=== PATIENT | male | born 1950 | race African-American/Black ===

== ENCOUNTER 2016-11-05 01:41 | Inpatient (IN) | payer SELFPAY ==
[~2016-11-05] VITALS: Ht 165.1 cm; Wt 49.9 kg
[2016-11-05] MEDS ORDERED: SODIUM CHLORIDE 0.9% 1,000 ML IV ONE (03:18)
[2016-11-05 03:59] LABS: BASOPHILS % 0.6 % (0.0-2.0); EOSINOPHILS % 2.7 % (0.0-5.0); HEMOGLOBIN. 12.7 g/dL (14.0-18.0); LYMPHOCYTES % 41.2 % (20.0-50.0); MEAN CORPUSCULAR HEMOGLOBIN 25.7 pg (28.0-32.0); MEAN CORPUSCULAR VOLUME 79.2 fL (80.0-94.0); MEAN PLATELET VOLUME 8.7 fl (7.4-10.4); MONOCYTES % 7.6 % (2.0-8.0); NEUTROPHILS % 47.9 % (40.0-76.0); PLATELET 180 x1000/uL (130-400); RED BLOOD CELL COUNT 4.92 mill/uL (4.7-6.1); RED CELL DISTRIBUTION WIDTH 20.9 % (11.6-14.6)
[2016-11-05] MEDS ORDERED: HYDRALAZINE 20MG/ML VIAL IV ONE (04:00)
[2016-11-05 04:01] LABS: PROTHROMBIN TIME 10.6 sec (9.4-11.6)
[2016-11-05 04:10] LABS: CARBON DIOXIDE 26 mEq/L (21-32); CHLORIDE 106 mEq/L (98-107); ETHANOL BLOOD < 10 mg/dL; TROPONIN I 0.03 ng/mL (0.00-0.04)
[2016-11-05] MEDS ORDERED: HYDRALAZINE 20MG/ML VIAL IV NR (05:00)
[2016-11-05 05:27] LABS: CLARITY URINE CLEAR (CLEAR); COLOR URINE YELLOW (YELLOW); GLUCOSE URINE NEGATIVE (NEGATIVE); KETONES URINE NEGATIVE (NEGATIVE); LEUKOCYTE ESTERASE URINE NEGATIVE (NEGATIVE); NITRITE URINE NEGATIVE (NEGATIVE); OCCULT BLOOD URINE NEGATIVE (NEGATIVE); PROTEIN URINE NEGATIVE (NEGATIVE); SPECIFIC GRAVITY URINE 1.014 (1.005-1.030)
[2016-11-05 05:41] LABS: *AMPHETAMINES SCREEN URINE NEGATIVE (NEGATIVE); *BARBITURATES SCREEN URINE NEGATIVE (NEGATIVE); *BENZODIAZEPINES SCREEN URINE NEGATIVE (NEGATIVE); *COCAINE SCREEN URINE NEGATIVE (NEGATIVE); CANNABINOID URINE SCREEN NEGATIVE (NEGATIVE); METHADONE URINE SCREEN NEGATIVE (NEGATIVE); OPIATES URINE SCREEN NEGATIVE (NEGATIVE); PHENCYCLIDINE URINE SCREEN NEGATIVE (NEGATIVE)
[2016-11-05] MEDS ORDERED: DIPHENHYDRAMINE 50MG/ML VIAL IV PRN (05:45)
[2016-11-05] MEDS ORDERED: CLONIDINE 0.1MG TABLET PO PRN (05:45)
[2016-11-05] MEDS ORDERED: ACETAMINOPHEN 325MG TABLET PO PRN (05:45)
[2016-11-05] MEDS ORDERED: MAGNESIUM/ALUMINUM HYDROXIDE/SIMETHICONE 30ML UDC PO PRN (05:45)
[2016-11-05] MEDS ORDERED: ONDANSETRON HCL 4MG/2ML VIAL IV PRN (05:45)
[2016-11-05] MEDS: SODIUM CHLORIDE 0.9% INJ 3ML FLUSH IVF SCH ×3 (06:00→21:28)
[2016-11-05 11:00] VITALS: BP 208/85
[2016-11-05] MEDS: AMLODIPINE 10MG TABLET PO SCH (11:40)
[2016-11-05] MEDS: DOCUSATE SODIUM 100MG CAPSULE PO SCH ×2 (11:41→17:03)
[2016-11-05] MEDS: LOSARTAN POTASSIUM 100 MG TABLET PO SCH (11:41)
[2016-11-05 11:55] VITALS: BP 208/85
[2016-11-05 13:20] VITALS: BP 125/64
[2016-11-05] MEDS ORDERED: MAGNESIUM HYDROXIDE 400MG/5ML 30ML UDC PO PRN (13:45)
[2016-11-05 16:00] VITALS: BP 137/63
[2016-11-05 20:00] VITALS: BP 133/55
[2016-11-06] VITALS: BP 144/62
[2016-11-06 04:00] VITALS: BP 137/67
[2016-11-06] MEDS: SODIUM CHLORIDE 0.9% INJ 3ML FLUSH IVF SCH ×2 (07:00→15:22)
[2016-11-06 08:00] VITALS: BP 141/67
[2016-11-06] MEDS: LOSARTAN POTASSIUM 100 MG TABLET PO SCH (09:29)
[2016-11-06] MEDS: AMLODIPINE 10MG TABLET PO SCH (09:29)
[2016-11-06] MEDS: DOCUSATE SODIUM 100MG CAPSULE PO SCH ×2 (09:29→16:58)
[2016-11-06] MEDS ORDERED: CLONIDINE 0.2MG TABLET PO PRN (11:00)
[2016-11-06 12:00] VITALS: BP 145/71
[2016-11-06 16:00] VITALS: BP 142/76
[2016-11-06 18:57] VITALS: BP 142/76
== END 2016-11-06 19:40 | disposition home or self-care (01) | DRG 199 ==
LOC: ER 01:41 → 5WST 04:57 → ENRESERV 10:16
PROVIDERS: ADMIT Internal Medicine; ATTEND Internal Medicine
DX: I10 Essential (primary) hypertension (principal); Z68.1 Body mass index [BMI] 19.9 or less, adult; K59.00 Constipation, unspecified; F17.210 Nicotine dependence, cigarettes, uncomplicated; R63.4 Abnormal weight loss; Z82.49 Family history of ischemic heart disease and other diseases of the circulatory system
CPT/HCPCS: 36415; 71010; 74176; 80053; 80305; 81003; 83036; 83605; 83690; 83880; 84484; 85025; 85610; 93005; 93970; 96361; 96374; 96376; 99285; G0482; J0360; J7030

== ENCOUNTER 2018-02-10 18:10 | Inpatient (IN) | payer SELFPAY ==
[~2018-02-10] VITALS: Ht 165.1 cm; Wt 49.0 kg
[2018-02-10] MEDS ORDERED: AMLODIPINE 10MG TABLET PO ONE (22:15)
[2018-02-10 23:21] LABS: CHLORIDE 110 mEq/L (98-107)
[2018-02-11] VITALS (10 sets, daily range): BP systolic 135–169; BP diastolic 52–74
[2018-02-11 01:18] LABS: MEAN CORPUSCULAR HEMOGLOBIN 12.1 pg (28.0-32.0); MEAN CORPUSCULAR VOLUME 49.6 fL (80.0-94.0); MEAN PLATELET VOLUME 9.1 fl (7.4-10.4); PLATELET 408 x1000/uL (130-400); RED BLOOD CELL COUNT 3.47 mill/uL (4.7-6.1); RED CELL DISTRIBUTION WIDTH 26.7 % (11.6-14.6)
[2018-02-11 01:24] LABS: HEMATOCRIT. 17.2 % (42.0-52.0); HEMOGLOBIN. 4.2 g/dL (14.0-18.0)
[2018-02-11 01:41] LABS: NUCLEATED RED BLOOD CELLS 2 /100 WBC
[2018-02-11 01:43] LABS: PLATELET ESTIMATE NORMAL
[2018-02-11] MEDS ORDERED: ONDANSETRON HCL 4MG/2ML INJ IV PRN (03:30)
[2018-02-11] MEDS ORDERED: CLONIDINE 0.1MG TABLET PO PRN (03:30)
[2018-02-11] MEDS ORDERED: MAGNESIUM/ALUMINUM HYDROXIDE/SIMETHICONE 30ML UDC PO PRN (03:30)
[2018-02-11 03:47] LABS: TOTAL IRON BINDING CAPACITY 394 ug/dL (250-450)
[2018-02-11] MEDS: AMLODIPINE 5MG TABLET PO SCH ×2 (13:18→20:52)
[2018-02-11] MEDS: SODIUM CHLORIDE 0.9% 1,000 ML IV SCH (14:23)
[2018-02-11] MEDS ORDERED: PANTOPRAZOLE SODIUM 40 MG/VIAL IV SCH (14:45)
[2018-02-11] MEDS ORDERED: SORBITOL 70% SOLN 30ML PO SCH ×2 (16:00→20:00)
[2018-02-11 16:23] LABS: HEMATOCRIT. 25.3 % (42.0-52.0); HEMOGLOBIN. 7.4 g/dL (14.0-18.0); MEAN CORPUSCULAR HEMOGLOBIN 18.1 pg (28.0-32.0); MEAN CORPUSCULAR VOLUME 61.7 fL (80.0-94.0); MEAN PLATELET VOLUME 8.5 fl (7.4-10.4); PLATELET 350 x1000/uL (130-400); RED BLOOD CELL COUNT 4.09 mill/uL (4.7-6.1)
[2018-02-11] MEDS: IRON SUCROSE COMPLEX 100 MG/5 ML ML IV SCH (17:41)
[2018-02-11 19:52] LABS: TOTAL IRON BINDING CAPACITY 544 ug/dL (250-450)
[2018-02-11] MEDS: PANTOPRAZOLE SODIUM 40 MG/VIAL IV SCH (20:52)
[2018-02-11 21:05] LABS: FERRITIN < 5 ng/mL (22-322)
[2018-02-11] MEDS: ACETAMINOPHEN 325MG TABLET PO PRN (22:06)
[2018-02-11 22:19] LABS: VITAMIN B12 SERUM 192 pg/mL (211-911)
[2018-02-11 23:15] LABS: PLATELET ESTIMATE NORMAL
[2018-02-12] VITALS (8 sets, daily range): BP systolic 118–155; BP diastolic 51–67
[2018-02-12 05:39] LABS: HEMATOCRIT 28.9 % (42.0-52.0); HEMOGLOBIN 8.7 g/dL (14.0-18.0)
[2018-02-12 08:35] LABS: HEMATOCRIT. 29.6 % (42.0-52.0); HEMOGLOBIN. 8.8 g/dL (14.0-18.0); MEAN CORPUSCULAR HEMOGLOBIN 19.9 pg (28.0-32.0); MEAN CORPUSCULAR VOLUME 66.5 fL (80.0-94.0); MEAN PLATELET VOLUME 9.2 fl (7.4-10.4); PLATELET 300 x1000/uL (130-400); RED BLOOD CELL COUNT 4.45 mill/uL (4.7-6.1); RED CELL DISTRIBUTION WIDTH 41.3 % (11.6-14.6)
[2018-02-12 08:56] LABS: CHLORIDE 115 mEq/L (98-107)
[2018-02-12] MEDS: PANTOPRAZOLE SODIUM 40 MG/VIAL IV SCH ×2 (09:00→20:51)
[2018-02-12] MEDS: AMLODIPINE 5MG TABLET PO SCH ×2 (09:00→20:51)
[2018-02-12 09:02] LABS: PHOSPHORUS 3.8 mg/dL (2.5-4.9)
[2018-02-12] MEDS ORDERED: MIDAZOLAM HCL 5 MG/5 ML VIAL IV PRN (10:39)
[2018-02-12] MEDS ORDERED: SIMETHICONE 40 MG/0.6 ML 30ML ONE (10:39)
[2018-02-12] MEDS ORDERED: FENTANYL CITRATE/PF 50MCG/ML 2ML VIAL IV PRN (10:40)
[2018-02-12] MEDS ORDERED: FENTANYL CITRATE/PF 50MCG/ML 2ML VIAL ONE ×2 (10:45→10:46)
[2018-02-12] MEDS ORDERED: MIDAZOLAM HCL 5 MG/5 ML VIAL ONE (10:45)
[2018-02-12 13:23] LABS: HEMATOCRIT 33.3 % (42.0-52.0); HEMOGLOBIN 9.8 g/dL (14.0-18.0)
[2018-02-12 13:30] LABS: INR 1.1; PARTIAL THROMBOPLASTIN TIME 24.4 sec (23.4-31.0)
[2018-02-12] MEDS ORDERED: SODIUM CHLORIDE 0.9% 10ML VIAL ONE (15:48)
[2018-02-12] MEDS: IRON SUCROSE COMPLEX 100 MG/5 ML ML IV SCH (19:08)
[2018-02-12 20:47] LABS: NUCLEATED RED BLOOD CELLS 1 /100 WBC; PLATELET ESTIMATE NORMAL
[2018-02-12] MEDS: ACETAMINOPHEN 325MG TABLET PO PRN (20:51)
[2018-02-12] MEDS: SODIUM CHLORIDE 0.9% 1,000 ML IV SCH (20:54)
[2018-02-12 21:33] LABS: HEMATOCRIT 31.8 % (42.0-52.0); HEMOGLOBIN 9.5 g/dL (14.0-18.0)
[2018-02-13] VITALS: BP 156/71
[2018-02-13 04:00] VITALS: BP 148/73
[2018-02-13 07:57] VITALS: BP 140/76
[2018-02-13] MEDS: AMLODIPINE 5MG TABLET PO SCH (09:00)
[2018-02-13] MEDS: PANTOPRAZOLE SODIUM 40 MG/VIAL IV SCH (09:46)
[2018-02-13] MEDS ORDERED: DIATR MEGLU/DIATRIZOATE SOLN 120ML ONE (10:55)
[2018-02-13] MEDS ORDERED: IOHEXOL-300 100 ML BOTTLE ONE (10:56)
[2018-02-13 12:00] VITALS: BP 152/62
[2018-02-13 14:10] VITALS: BP 152/62
== END 2018-02-13 15:55 | disposition home or self-care (01) | DRG 241 ==
LOC: ER 18:10 → 6WST 02-11 01:44 → ENRESERV 02-11 08:09
PROVIDERS: ADMIT Internal Medicine; ATTEND Internal Medicine
PROC: 30233N1 Transfusion of Nonautologous Red Blood Cells into Peripheral Vein, Percutaneous Approach (ICD-10-PCS; 2018-02-11)
PROC: 0DB68ZX Excision of Stomach, Via Natural or Artificial Opening Endoscopic, Diagnostic (ICD-10-PCS; principal; 2018-02-12)
PROC: 0DBP8ZX Excision of Rectum, Via Natural or Artificial Opening Endoscopic, Diagnostic (ICD-10-PCS; 2018-02-12)
DX: K29.71 Gastritis, unspecified, with bleeding (principal); D47.3 Essential (hemorrhagic) thrombocythemia; I10 Essential (primary) hypertension; D50.9 Iron deficiency anemia, unspecified; Z87.891 Personal history of nicotine dependence; K44.9 Diaphragmatic hernia without obstruction or gangrene; R63.4 Abnormal weight loss; K62.9 Disease of anus and rectum, unspecified; Z68.1 Body mass index [BMI] 19.9 or less, adult
CPT/HCPCS: 36415; 36430; 71045; 74177; 80048; 82270; 82607; 82728; 82746; 83540; 83550; 83735; 84100; 84484; 85014; 85018; 86850; 86900; 86920; 88305; 88312; 88313; 93005; 99152; 99285; C9113; J2250; J3010; J7040; J7050; P9016; Q9963; Q9967; G0500